=== PATIENT | female | born 1965 | race Caucasian/White ===

== ENCOUNTER 2019-05-15 19:24 | Outpatient (REF) | payer BC, SELFPAY ==
[2019-05-15 19:38] LABS: HCT 39.4 % (36.0-46.0); Mean Corpuscular Hemoglobin 28.9 pg (27.0-33.0); Mean Corpuscular Volume 87.6 fL (80-95); Mean Platelet Volume 11.6 fL (8.0-11.0); Platelet Count 182 x1000/uL (130-400); White Blood Cell Count 5.41 k/cumm (4.4-10.8)
[2019-05-15 19:42] LABS: Anion Gap 7.6 mmol/L (3-11); BUN 7 mg/dL (7-18); CO2 30.4 mmol/L (21.0-32.0); CREATININE 0.72 mg/dL (0.55-1.02); Calcium 8.5 mg/dL (8.5-10.1); Chloride 106 mmol/L (98-107); Glucose 89 mg/dL (74-106); Potassium 3.3 mmol/L (3.5-5.1); Sodium 144 mmol/L (136-145)
== END 2019-05-15 19:44 ==
LOC: NCHCO 19:24
PROVIDERS: PCP Nurse Practitioner Family; Visit Provider Nurse Practitioner Family
DX: Z00.00 Encounter for general adult medical examination without abnormal findings (principal); Z13.0 Encounter for screening for diseases of the blood and blood-forming organs and certain disorders involving the immune mechanism; Z13.228 Encounter for screening for other metabolic disorders
CPT/HCPCS: 80048; 85027

== ENCOUNTER 2019-08-13 00:54 | Outpatient (CLI) | payer BC, OTHER, SELFPAY ==
--- NOTE | 2019-08-13 | DI.MAMMO_ITS ---
EXAM: MAMMO SCREENING CLINICAL HISTORY: SCREENING Z12.39 TECHNIQUE: Mammograms were interpreted according to the usual protocol including computer analysis w IM-Sense CAD system, tomosynthesis and C-view imaging. COMPARISON: 2012 examination from [place]. FINDINGS: The breasts are composed of scattered fibroglandular densities, Breast Density category B. No suspicious masses or suspicious microcalcifications are seen. No skin thickening or abnormal axillary lymph nodes are seen. There has been no significant change from prior exams. IMPRESSION: BIRADS Category 1, negative mammogram. Yearly screening mammography is recommended.
== END 2019-08-13 01:14 ==
PROVIDERS: PCP Nurse Practitioner Family; Visit Provider Nurse Practitioner Family
DX: Z12.31 Encounter for screening mammogram for malignant neoplasm of breast (principal)
CPT/HCPCS: 77063; 77067

== ENCOUNTER 2020-07-29 10:39 | Emergency (ER) | payer BC, OTHER, SELFPAY ==
[2020-07-29] VITALS (14 sets, daily range): BP systolic 108–157; BP diastolic 64–94; PULSE 68–102; RESP 13–24; TEMP 36.6; O2SAT 93–100
--- NOTE | 2020-07-29 10:30 | RT.EKG_ITS ---
APPROVED REPORT Exam: Resting ECG Patient Location: E HR:95 bpm ECG Measurements Heart Rate 95 AXIS WA 125 P 24 QRSd 82 QRS 20 QT 372 T -8 QTc 468 Conclusion Sinus rhythm...normal P axis, V-rate 60- 99 I have reviewed and interpreted ECG and agree with software generated interpretation.
[2020-07-29 11:15] LABS: Abs Immature Grans 0.03 10^3/uL (0.0-0.06); Absolute Basophil Count 0.01 10^3/uL (0.0-0.2); Absolute Eosinophil Count 0.15 10^3/uL (0.0-0.7); Absolute Lymphocyte Count 1.42 10^3/uL (1.2-3.4); Absolute Monocyte Count 0.18 10^3/uL (0.1-0.8); Absolute Neutrophil Count 2.91 10^3/uL (1.2-6.7); Basophils % 0.2; Eosinophils % 3.2; HCT 42.3 % (36.0-46.0); HGB 14.1 g/dL (11.2-15.7); Immature Grans % 0.6; Lymphocytes % 30.2; MCHC 33.3 % (32.0-36.0); MCV 86.9 fL (80-95); MPV 11.2 fL (8.0-11.0); Monocytes % 3.8; Nucleated RBC 0 %; Platelet Count 167 10^3/uL (130-400); RBC 4.87 10^6/uL (3.93-5.22); RDW 13.4 % (11.7-14.6); RDW-SD 42.8 fL
--- NOTE | 2020-07-29 11:25 | ED.GENADUL_ITS ---
Discharge Plan Disposition Patient Disposition: HOME Condition: Stable Discharge Details Clinical Impression: Palpitations with regular cardiac rhythm, Anxiety, Hypokalemia Primary Care Provider: Jesse Waterman ED Provider: Elina Meraz Home Meds and New Rx's Prescriptions: New hydroxyzine HCl 25 mg tablet 25 mg PO BID PRN (Reason: anxiety) Qty: 10 RF: 0 Continued aspirin [Adult Low Dose Aspirin] 81 mg tablet,delayed release (DR/EC) 81 mg PO DAILY RF: 0 flecainide 150 mg tablet 150 mg PO BID RF: 0 metoprolol tartrate 25 mg tablet 25 mg PO DAILY RF: 0 Discharge Instructions Instructions: Heart Palpitations (ED), Hypokalemia (ED), Anxiety (ED) Additional Instructions: Follow up with primary care provider in 3-5 days. Return to ED sooner if any worsening or concerns. Increase oral fluids. Please take Tylenol or Ibuprofen with food every 4-6 hours as needed for pain and swelling. Your potassium was slightly low today at 3.1, you were given a potassium supplement here in the department. Increase intake of bananas if possible and discuss this with your primary care provider at your next visit. Try hydroxyzine 1 tablet at bedtime each night as needed for anxiety. Please return for any worsening symptoms, fever, chills or any concerns. Referrals: Jesse Waterman, [employer] [Primary Care Provider] - Discharge Data Discharge Date/Time-TO BE ENTERED AT DEPARTURE: 07/29/20 13:08 Medical Decision Making 55-year-old female presents to the ER with chief complaint of palpitation which began last night woke her up out of sleep. At that time she was complaining of sweatiness which has now resolved. Palpitations have resolved at this time. She denies any chest pain. She does have a history of asthma and a seasonal cough which she states is at her baseline at this time. She denies any fever, no nausea vomiting diarrhea no abdominal pain. She does appear very anxious, pressured speech, flight of ideas, she does use albuterol inhalers did not need to use any this morning. EKG was reviewed by Dr. Tonya Delatorre MD ER attending, please see her official read and interpretation EKG was also read by the housekeeping lead Dr. Vazquez Myles who agrees with interpretation. No ST elevation no ectopy. CBC is largely within normal limits, CMP is largely within normal limits mild hypokalemia at 3.1, alk phos is 120, troponin is less than 0.05, EXAM: XR CHEST 2V PA LATERAL CLINICAL HISTORY: Palpitations, hx of asthma TECHNIQUE: 2D digital imaging was performed. COMPARISON: No exams were available for comparison FINDINGS: MEDIASTINUM: Normal. HEART: Normal. PULMONARY VASCULATURE: Normal. LUNGS: Clear. PLEURAL SPACE: No pleural effusion or pneumothorax. BONE:Within normal limits for the patient's age. OTHER FINDINGS:Normal. IMPRESSION: No acute pulmonary findings. Patient was given 20 mEq potassium p.o. here in department discussed home care and having PCP follow-up with potassium level. Discuss strict return instructions patient verbalized understanding. Patient remained hemodynamically stable with normal sinus rhythm throughout stay. This text was generated using [employer] system, please disregard any oddities of phrase or misspellings. HPI General Mode of arrival: ambulatory . Date/Time Provider Initiated Documentation: 07/29/20 10:44 . Limitations to Documentation: no limitations . Information obtained by: patient . HPI Narrative: 55-year-old female presents to the ER with chief complaint of palpitation which began last night woke her up out of sleep. At that time she was complaining of sweatiness which has now resolved. Palpitations have resolved at this time. She denies any chest pain. She does have a history of asthma and a seasonal cough which she states is at her baseline at this time. She denies any fever, no nausea vomiting diarrhea no abdominal pain. She does appear very anxious, pressured speech, flight of ideas, she does use albuterol inhalers did not need to use any this morning. Related Data Home Medications Medication Instructions Recorded Confirmed aspirin 81 mg tablet,delayed 81 mg PO DAILY 07/23/19 release flecainide 150 mg tablet 150 mg PO BID tab 07/23/19 metoprolol tartrate 25 mg tablet 25 mg PO DAILY 07/23/19 hydroxyzine HCl 25 mg PO BID PRN #10 tab 07/29/20 Previous Rx's Medication Instructions Recorded hydroxyzine HCl 25 mg PO BID PRN #10 tab 07/29/20 Allergies Allergy/AdvReac Type Severity Reaction Status Date / Time epinephrine Allergy Unverified 07/29/20 10:57 procaine [From Novocain] Allergy Unverified 07/29/20 10:57 Sulfa (Sulfonamide Allergy Hives Unverified 07/29/20 10:57 Antibiotics) General Stated Complaint: Anxiety FRANKO: 3 Review of Systems Narrative: Constitutional: Negative for weight loss, alert and oriented, well groomed, obese body habitus, appears comfortable. Does endorse intermittent anxiety. HEENT: Denies trauma, headaches, blurry vision, nasal discharge, sore throat, trouble swallowing. Chest: Denies chest pain, irregular rhythm, positive palpitations, history of hypertension, palpitations and symptoms resolved. Respiratory: Denies Shortness of breath, hemoptysis. Positive nonproductive cough, history of asthma. GI: Denies abdominal pain, nausea, vomiting, diarrhea, constipation. : Denies dysuria, hematuria, flank pain, rectal bleeding. Neuro: Denies dizziness, blurry vision, weakness, syncope, headache or facial numbness. Hematologic: Denies easy bruising, intolerance to heat or cold, hair loss. 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 Appears stated age. Obese body habitus. Head: Normocephalic, no trauma. Eyes: Pupils PERRLA, Red reflex noted, EOM's intact. Eyelids symmetrical without lesions, discharge, or swelling. ENT: Bilateral TM's WNL, External ear normal to inspection, no mastoid TTP, swelling, or erythema, Nasal turbinates WNL, no nasal discharge. Normal dentition, Posterior pharynx WNL, no exudate. Chest: RRR, Normal S1, S2, distal pulses intact. Resp: Lungs clear to auscultation bilaterally, no wheezes, rales, or rhonchi. Abdomen: Soft nontender nondistended, tender left lower quadrant. Musculoskeletal: Normal gait, 5/5 strength to all four extremities. Skin: No suspicious rashes or lesions. Capillary refill less than 2 sec. Neurologic: Cranial nerves II-XII intact. Alert and oriented x 3. DTR's intact. Hematologic/Lymphatic: No ecchymosis, no lymphadenopathy. Course Vital Signs Vital signs: Vital Signs Temperature 36.6 C 07/29/20 10:46 Pulse 92 H 07/29/20 10:46 Respiratory Rate 24 07/29/20 10:46 Blood Pressure 157/94 H 07/29/20 10:46 Pulse Oximetry 100 07/29/20 10:46 Temperature 36.6 C 07/29/20 10:46 Pulse 89 07/29/20 10:53 Pulse 92 H 07/29/20 10:53 Respiratory Rate 19 07/29/20 10:53 Respiratory Effort Non-Labored 07/29/20 10:57 Blood Pressure 157/94 H 07/29/20 10:53 Blood Pressure Mean 106 07/29/20 10:53 Blood Pressure Position Sitting 07/29/20 10:46 Pulse Oximetry 99 07/29/20 10:53 Oxygen Delivery Method Room Air 07/29/20 10:46 Oxygen Flow Rate 0 07/29/20 10:46 Pain Level 0 07/29/20 10:46 Lab/Test Results Lab/Test Results: Laboratory Tests Range/Units 07/29/20 11:05 WBC (4.4-10.8) 10^3/uL 4.70 RBC (3.93-5.22) 10^6/uL 4.87 Hgb (11.2-15.7) g/dL 14.1 Hct (36.0-46.0) % 42.3 MCV (80-95) fL 86.9 MCH (27.0-33.0) pg 29.0 MCHC (32.0-36.0) % 33.3 RDW (11.7-14.6) % 13.4 Plt Count (130-400) 10^3/uL 167 MPV (8.0-11.0) fL 11.2 H Immature Gran % 0.6 Neutrophils % 62.0 Lymphocytes % 30.2 Monocytes % 3.8 Eosinophils % 3.2 Basophils % 0.2 Nucleated RBC % % 0 Absolute Neutrophils (1.2-6.7) 10^3/uL 2.91 Absolute Lymphocytes (1.2-3.4) 10^3/uL 1.42 Absolute Monocytes (0.1-0.8) 10^3/uL 0.18 Absolute Eosinophils (0.0-0.7) 10^3/uL 0.15 Absolute Basophils (0.0-0.2) 10^3/uL 0.01
[2020-07-29 11:34] LABS: ALT 31 U/L (14-59); AST 32 U/L (15-37); Albumin 4.1 g/dL (3.4-5.0); Alkaline Phosphatase 120 U/L (46-116); Anion Gap 10.7 mmol/L (3-11); BUN 9 mg/dL (7-18); Bilirubin, Total 0.9 mg/dL (0.2-1.0); CO2 28.3 mmol/L (21.0-32.0); CREATININE 0.9 mg/dL (0.55-1.02); Calcium 9.2 mg/dL (8.5-10.1); Chloride 106 mmol/L (98-107); Glucose 93 mg/dL (74-106); Potassium 3.1 mmol/L (3.5-5.1); Sodium 145 mmol/L (136-145); Total Protein 8.5 g/dL (6.4-8.2)
[2020-07-29] MEDS: LORazepam 0.5 MG TAB PO (11:35)
[2020-07-29 11:40] LABS: Troponin I < 0.05 ng/mL (<0.06)
--- NOTE | 2020-07-29 11:55 | DI.RAD_ITS ---
EXAM: XR CHEST 2V PA LATERAL CLINICAL HISTORY: Palpitations, hx of asthma TECHNIQUE: 2D digital imaging was performed. COMPARISON: No exams were available for comparison FINDINGS: MEDIASTINUM: Normal. HEART: Normal. PULMONARY VASCULATURE: Normal. LUNGS: Clear. PLEURAL SPACE: No pleural effusion or pneumothorax. BONE:Within normal limits for the patient's age. OTHER FINDINGS:Normal. IMPRESSION: No acute pulmonary findings. DATA REPOSITORY: RADIATION DOSE DELIVERED:
[2020-07-29] MEDS: Potassium Chloride 20 MEQ TABCR 40 MEQ PO (12:54)
== END 2020-07-29 13:08 | disposition home or self-care (01) ==
PROVIDERS: Emergency Provider Registered Nurse Emergency; PCP Nurse Practitioner Family
DX: R00.2 Palpitations (principal); E87.6 Hypokalemia; F41.9 Anxiety disorder, unspecified
CPT/HCPCS: 36415; 80053; 93005; 99285; 71046; 83735; 84484; 85025; 93010; 99284

== ENCOUNTER 2021-12-28 15:04 | Outpatient (REF) | payer BC, OTHER, SELFPAY ==
[2021-12-28 20:26] LABS: Abs Immature Grans 0.02 10^3/uL (0.0-0.06); Absolute Basophil Count 0.01 10^3/uL (0.0-0.2); Absolute Eosinophil Count 0.15 10^3/uL (0.0-0.7); Absolute Monocyte Count 0.28 10^3/uL (0.1-0.8); Absolute Neutrophil Count 3.17 10^3/uL (1.2-6.7); Basophils % 0.2; Eosinophils % 2.9; HCT 40.9 % (36.0-46.0); HGB 13.4 g/dL (11.2-15.7); Immature Grans % 0.4; Lymphocytes % 30.6; MCH 28.3 pg (27.0-33.0); MCHC 32.8 % (32.0-36.0); MCV 87 fL (80-95); MPV 12.7 fL (8.0-11.0); Monocytes % 5.4; Neutrophils % 60.5; Platelet Count 131 10^3/uL (130-400); RBC 4.73 10^6/uL (3.93-5.22); RDW 13.8 % (11.7-14.6); RDW-SD 43.4 fL; WBC 5.23 10^3/uL (4.4-10.8)
[2021-12-28 20:54] LABS: ALT 35 U/L (14-59); AST 49 U/L (15-37); Alkaline Phosphatase 117 U/L (46-116); Anion Gap 13.5 mmol/L (3-11); BUN 8 mg/dL (7-18); Bilirubin, Total 0.6 mg/dL (0.2-1.0); CO2 27.5 mmol/L (21.0-32.0); CREATININE 0.7 mg/dL (0.55-1.02); Calcium 8.9 mg/dL (8.5-10.1); Chloride 105 mmol/L (98-107); Glucose 86 mg/dL (74-106); Magnesium 1.9 mg/dL (1.8-2.4); Potassium 3.3 mmol/L (3.5-5.1); Sodium 146 mmol/L (136-145); Total Protein 7.8 g/dL (6.4-8.2)
== END 2021-12-28 15:05 | disposition home or self-care (01) ==
LOC: LBN 15:04
PROVIDERS: PCP Nurse Practitioner Family; Visit Provider Nurse Practitioner Family
DX: R25.2 Cramp and spasm (principal)
CPT/HCPCS: 80053; 83735; 85025

== ENCOUNTER 2022-01-23 18:26 | Emergency (ER) | payer BC, OTHER, SELFPAY ==
[2022-01-23 18:31] VITALS: BP 130/81; PULSE 102; RESP 16; TEMP 36.3; O2SAT 99
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
== END 2022-01-23 18:55 | disposition home or self-care (01) ==
PROVIDERS: Emergency Provider Emergency Medicine; PCP Nurse Practitioner Family
DX: S00.83XA Contusion of other part of head, initial encounter (principal); W22.8XXA Striking against or struck by other objects, initial encounter; Y93.89 Activity, other specified
CPT/HCPCS: 99281; 99282

== ENCOUNTER 2022-05-01 16:32 | Outpatient (REF) | payer BC, OTHER, SELFPAY ==
[2022-05-01 16:54] LABS: ALT 33 U/L (14-59); AST 58 U/L (15-37); Albumin 3.8 g/dL (3.4-5.0); Alkaline Phosphatase 118 U/L (46-116); Anion Gap 10.8 mmol/L (3-11); BUN 8 mg/dL (7-18); Bilirubin, Total 0.8 mg/dL (0.2-1.0); CO2 28.2 mmol/L (21.0-32.0); CREATININE 0.8 mg/dL (0.55-1.02); Calcium 8.9 mg/dL (8.5-10.1); Chloride 104 mmol/L (98-107); Glucose 96 mg/dL (74-106); Potassium 3.1 mmol/L (3.5-5.1); Sodium 143 mmol/L (136-145); Total Protein 7.9 g/dL (6.4-8.2)
== END 2022-05-01 16:33 | disposition home or self-care (01) ==
LOC: LBN 16:32
PROVIDERS: Visit Provider Physician Assistant Medical
DX: U07.1 COVID-19 (principal)
CPT/HCPCS: 80053

== ENCOUNTER 2023-01-09 15:16 | Emergency (ER) | payer BC, OTHER, SELFPAY ==
[2023-01-09 15:23] VITALS: BP 164/57; PULSE 87; RESP 18; TEMP 37.3; O2SAT 97
[2023-01-09 17:17] LABS: Bilirubin Negative (Negative); Blood Negative (Negative); Clarity Clear (Clear); Glucose Negative (Negative); Ketones Negative (Negative); Leukocyte Esterase Negative (Negative); Nitrite Negative (Negative); Specific Gravity 1.015 (1.005-1.025); Urobilinogen 0.2 mg/dL (Up to 0.2); pH 6.5 (5-8)
--- NOTE | 2023-01-09 17:32 | ED.GENADUL_ITS ---
Discharge Plan Disposition Patient Disposition: Home Condition: Stable Discharge Details Clinical Impression: Left acute otitis media Primary Care Provider: Unknown,Unknown ED Provider: Franc Dorsey Home Meds and New Rx's Prescriptions: New amoxicillin 500 mg tablet 500 mg PO BID Qty: 20 0RF Continued loratadine [Claritin] 10 mg Tablet 10 mg PO DAILY Discharge Instructions Instructions: Ear Infection (ED) Additional Instructions: follow up with your primary care provider in 1-2 weeks especially if symptoms continue if you feel more ill, have severe worsening pain or fevers return to the emergency department Medical Decision Making 57 yo female comes in with 1-2 weeks of left ear pain. States she had it irrigated at urgent care last week. Denies fevers, chills, chest pain, dyspnea, abdominal pain, no trauma and no severe pain. Her right TM is normal, left TM red and bulging, normal ext aud canals bilaterally. CAox4, no facial swelling, eomi, perrl. Findings consistent with otitis media, will start her on amoxicillin. She also noted blood in her urine earlier denies any frequency or dysuria. UA today normal. She is not sure if it was from her urine or vagina. No bleeding currently and declined pelvic which I feel is reasonable. Advised she should f/u with her pcp if it continues for outpatient u/s of her uterus. She is stable for d/c, return precautions given Differential Diagnosis Differential Diagnosis: otitis media, otitis externa, uti, vaginal bleeding HPI General Mode of arrival: ambulatory . Date/Time Provider Initiated Documentation: 01/09/23 16:14 . Limitations to Documentation: no limitations . Information obtained by: patient . History of Present Illness 57 year old F presents to the emergency department with the chief complaint of left ear pain, described as moderate, Patient started experiencing this week(s) (1) and it has been constant. No relieving factors improve symptom(s), No exacerbating factors reported . Patient notes other (blood in urine). Patient did receive the following treatments prior to arrival, none Related Data Home Medications Medication Instructions Recorded Confirmed loratadine 10 mg tablet (Claritin) 10 mg PO DAILY 01/23/22 01/09/23 amoxicillin 500 mg tablet 500 mg PO BID #20 tabs 01/09/23 Previous Rx's Medication Instructions Recorded amoxicillin 500 mg tablet 500 mg PO BID #20 tabs 07/23/23 Allergies Allergy/AdvReac Type Severity Reaction Status Date / Time epinephrine Allergy Unverified 01/23/22 18:37 procaine [From Novocain] Allergy Unverified 01/23/22 18:37 Sulfa (Sulfonamide Allergy Hives Unverified 01/23/22 18:37 Antibiotics) General Stated Complaint: EarProblem FRANKO: 4 Review of Systems All systems reviewed & are unremarkable except as noted in HPI and below Constitutional Constitutional: Denies chills, Denies fever(s) and Denies weakness Cardiovascular Cardiovascular: Denies chest pain and Denies dyspnea Respiratory Respiratory: Denies cough and Denies dyspnea Gastrointestinal Gastrointestinal: Denies abdominal pain, Denies nausea and Denies vomiting Genitourinary Genitourinary: Denies dysuria Integumentary/Breasts Skin/Breast: Denies rash Neurologic Neurologic: Denies weakness PFSH All Active Problems (Updated 01/09/23 @ 17:35 by Franc Dorsey MD) Left acute otitis media (Acute) Medical History (Updated 01/09/23 @ 17:35 by Franc Dorsey MD) Degenerative arthritis of spine Hemorrhoids 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 Supraventricular arrhythmia Social History Smoking/Tobacco Use Status: Never Smoking risk assessment performed?: Yes Alcohol Intake: never Drug use: Never Substance use type: does not use Do you feel safe at home: Yes Do you feel safe in your relationship?: Yes Exam Const General: no acute distress Orientation: alert HENMT Head: normal to inspection Ears: external ears normal, TM normal on the right and left TM abnormal General nose exam: external nose normal Mouth: moist mucous membranes Eyes General: appearance normal, both eyes and all related structures Neck Neck: normal visual inspection Resp Effort & Inspection: normal respiratory effort and able to speak in complete sentences Cardio Rate: regular rate Skin General skin exam: no rashes or lesions noted Neuro General: patient alert and patient oriented x3 Extrem General: normal to inspection Psych Mental Status: mental status grossly normal Course Vital Signs Vital signs: Vital Signs Temperature 37.3 C 01/09/23 15:23 Pulse 87 01/09/23 15:23 Respiratory Rate 18 01/09/23 15:23 Blood Pressure 164/57 H 01/09/23 15:23 Pulse Oximetry 97 01/09/23 15:23 Temperature 37.3 C 01/09/23 15:23 Pulse 87 01/09/23 15:23 Respiratory Rate 18 01/09/23 15:23 Respiratory Effort Normal, Non-Labored 01/09/23 15:30 Blood Pressure 164/57 H 01/09/23 15:23 Blood Pressure Position Sitting 01/09/23 15:23 Pulse Oximetry 97 01/09/23 15:23 Oxygen Delivery Method Room Air 01/09/23 15:23 Oxygen Flow Rate 0 01/09/23 15:23 Lab/Test Results Lab/Test Results: Laboratory Tests Range/Units 01/09/23 16:34 Urine Color (Yellow) Yellow Urine Clarity (Clear) Clear Urine pH (5-8) 6.5 Ur Specific [place] (1.005-1.025) 1.015 Urine Protein (Negative) mg/dL Negative Urine Ketones (Negative) mg/dL Negative Urine Blood (Negative) Negative Urine Nitrite (Negative) Negative Urine Bilirubin (Negative) Negative Urine Urobilinogen (Up to 0.2) mg/dL 0.2 Ur Leukocyte Esterase (Negative) Negative Urine Glucose (Negative) mg/dL Negative
[2023-01-09] MEDS: Amoxicillin 500 MG CAP PO (17:47)
[2023-01-09 18:48] VITALS: BP 124/73; PULSE 76; RESP 16; O2SAT 93
== END 2023-01-09 18:59 | disposition home or self-care (01) ==
PROVIDERS: Emergency Provider Emergency Medicine
DX: H66.92 Otitis media, unspecified, left ear (principal)
CPT/HCPCS: 99283; 81003

== ENCOUNTER 2023-09-09 21:18 | Outpatient (REF) | payer BC, OTHER, SELFPAY ==
[2023-09-09 21:25] LABS: Abs Immature Grans 0.01 10^3/uL (0.0-0.06); Absolute Basophil Count 0.01 10^3/uL (0.0-0.2); Absolute Lymphocyte Count 1.48 10^3/uL (1.2-3.4); Absolute Monocyte Count 0.21 10^3/uL (0.1-0.8); Basophils % 0.2; Eosinophils % 2.1; HCT 41.1 % (36.0-46.0); HGB 13.1 g/dL (11.2-15.7); Immature Grans % 0.2; Lymphocytes % 30.8; MCH 28.1 pg (27.0-33.0); MCHC 31.9 % (32.0-36.0); MCV 88 fL (80-95); Monocytes % 4.4; Neutrophils % 62.3; RBC 4.66 10^6/uL (3.93-5.22); RDW 13.9 % (11.7-14.6); RDW-SD 44.8 fL; WBC 4.81 10^3/uL (4.4-10.8)
[2023-09-09 21:34] LABS: Bacteria Few HPF (Negative); C & S Indicated? C&S Done As Ordered; Casts Negative LPF (Negative); Crystals Negative HPF (Negative); Epithelial Cells Few HPF (Negative); Mucus Negative (Negative)
[2023-09-09 21:44] LABS: ALT 44 U/L (14-59); AST 56 U/L (15-37); Albumin 4.2 g/dL (3.4-5.0); Alkaline Phosphatase 125 U/L (46-116); Anion Gap 11.5 mmol/L (3-11); BUN 14 mg/dL (7-18); Bilirubin, Total 1.1 mg/dL (0.2-1.0); CO2 26.5 mmol/L (21.0-32.0); CREATININE 0.7 mg/dL (0.55-1.02); Calcium 9.5 mg/dL (8.5-10.1); Chloride 108 mmol/L (98-107); Estimated GFR 101.44 (mL/min/1.73m2); Glucose 90 mg/dL (74-106); Potassium 4.6 mmol/L (3.5-5.1); Sodium 146 mmol/L (136-145); Total Protein 8.3 g/dL (6.4-8.2)
== END 2023-09-09 21:19 | disposition home or self-care (01) ==
LOC: LBN 21:18
PROVIDERS: Visit Provider Physician Assistant Medical
DX: R10.31 Right lower quadrant pain (principal); R10.2 Pelvic and perineal pain; M54.89 Other dorsalgia; R82.998 Other abnormal findings in urine
CPT/HCPCS: 80053; 81015; 85025; 87086; 87480; 87510; 87660

== ENCOUNTER 2024-01-25 18:35 | Outpatient (REF) | payer BC, OTHER, SELFPAY ==
[2024-01-25 21:26] LABS: ALT 26 U/L (14-59); AST 32 U/L (15-37); Albumin 3.8 g/dL (3.4-5.0); Alkaline Phosphatase 101 U/L (46-116); Anion Gap 8.6 mmol/L (3-11); BUN 8 mg/dL (7-18); Bilirubin, Total 0.61 mg/dL (0.2-1.0); CO2 28.4 mmol/L (21.0-32.0); CREATININE 0.8 mg/dL (0.55-1.02); Calcium 8.9 mg/dL (8.5-10.1); Calculated LDL 86 mg/dL (<100); Chloride 107 mmol/L (98-107); Cholesterol 143 mg/dL (<200); Estimated GFR 86.42 (mL/min/1.73m2); Glucose 89 mg/dL (74-106); HDL Cholesterol 41 mg/dL (40-60); Potassium 3.8 mmol/L (3.5-5.1); Sodium 144 mmol/L (136-145); Total Protein 7.9 g/dL (6.4-8.2); Triglyceride 82 mg/dL (<150)
== END 2024-01-25 18:36 | disposition home or self-care (01) ==
LOC: NCHCN 18:35
PROVIDERS: PCP Nurse Practitioner Family; Visit Provider Nurse Practitioner Family
DX: Z00.00 Encounter for general adult medical examination without abnormal findings (principal); Z13.220 Encounter for screening for lipoid disorders; Z13.228 Encounter for screening for other metabolic disorders
CPT/HCPCS: 80053; 80061

== ENCOUNTER 2024-06-18 01:36 | Outpatient (CLI) | payer BC, OTHER, SELFPAY ==
--- NOTE | 2024-06-18 | DI.MAMMO_ITS ---
Exam(s) MAMMO SCREENING EXAM: MAMMO SCREENING CLINICAL HISTORY: Screening, Z12.31. TECHNIQUE: Bilateral full field digital CC and MLO mammographic images were obtained with 3D tomosyn thesis and utilizing computer aided detection (CAD). COMPARISON: Prior mammograms were reviewed. FINDINGS: There has been no significant change in the appearance and distribution of the fibroglandular tissue. Small benign oil cyst is noted anteriorly in the left breast. There are no new spiculated masses nor new malignant appearing microcalcification groups. There is no significant architectural distortion nor skin thickening-retraction. IMPRESSION: No radiographic evidence of malignancy. BI-RADS Category 1 - Negative Breast Density - Category B - Scattered areas of fibroglandular density Breast density Category C or D implies that the patient has dense breast tissue. Dense breast tissue can make it harder to find cancer on a mammogram. Dense breast tissue is also associated with an incr eased risk of breast cancer. This information about the result of the mammogram report was provided to the patient to raise their awareness. Use this report when you speak with the patient about their risks for breast cancer, which includes their family history. At that time, you may recommend additional screening tests (Ultrasoun d or MRI) as these tests may add significant information. A negative radiographic report should not delay biopsy if a dominant or clinically suspicious mass is present. Up to ten percent of cancers are not identified on mammography. A negative report may reinforce clinical impression. Adenosis and dense breasts may obscure an underlying neoplasm. False positive reports average 6 to 10%. Patient will receive a letter notifying them of these results.
== END 2024-06-18 01:56 ==
LOC: DI 01:37
PROVIDERS: PCP Nurse Practitioner Family; Visit Provider Nurse Practitioner Family
DX: Z12.31 Encounter for screening mammogram for malignant neoplasm of breast (principal); D24.2 Benign neoplasm of left breast; R92.323 Mammographic fibroglandular density, bilateral breasts
CPT/HCPCS: 77063; 77067

== ENCOUNTER 2024-06-18 11:42 | Outpatient (REF) | payer BC, OTHER, SELFPAY ==
--- NOTE | 2024-06-18 11:15 | PAPFT_PTH ---
PATIENT: Juani Kearney LOC: [facility] U#:[id number] AGE/SX: 58/F ROOM: RE06/18/[address]: Becca Dorsey NP : 1965 BED: DIS: 06/18/2024 SPEC #: [id number] RECD: 06/18/24 13:13 STATUS: NYDIA REQ #: [id number] CAITLYN: 06/18/24 11:[address]: Becca Dorsey NP DEPT: [facility] Cytology RECD BY: Cici Dickinson ENTERED: 06/18/24 13:13 SP TYPE: PAPFT OTHR DR: KSENIA ENCINAS NP Tissues: 1 - CX/ENDOCX FOR PAP SMEARS Procedures: PAP THIN PREP/UVM Screening HPV DNA PROBE Comments: [id number] (HPV 16 & 18/45)
== END 2024-06-18 11:43 | disposition home or self-care (01) ==
LOC: LBN 11:42
PROVIDERS: PCP Nurse Practitioner Family; Visit Provider Nurse Practitioner Women's Health
DX: Z01.419 Encounter for gynecological examination (general) (routine) without abnormal findings (principal); Z12.4 Encounter for screening for malignant neoplasm of cervix
CPT/HCPCS: 88142; 87624

== ENCOUNTER 2024-08-25 19:19 | Emergency (ER) | payer BC, OTHER, SELFPAY ==
[2024-08-25 19:37] VITALS: BP 167/65; PULSE 89; RESP 18; TEMP 37; O2SAT 97
[2024-08-25 19:50] LABS: Bilirubin Negative (Negative); Blood Negative (Negative); Clarity Clear (Clear); Glucose Negative (Negative); Ketones Negative (Negative); Leukocyte Esterase Small (Negative); Nitrite Negative (Negative); Specific Gravity <= 1.005 (1.005-1.025); Urobilinogen 0.2 mg/dL (Up to 0.2); pH 5.5 (5-8)
--- NOTE | 2024-08-25 19:50 | W.ED.GENAD ---
Discharge Plan Disposition Patient Disposition: Home Condition: Stable Discharge Details Clinical Impression: Dysuria Primary Care Provider: KSENIA ENCINAS ED Provider: Donal Wilson Home Meds and New Rx's Prescriptions: Continued acetaminophen 325 mg capsule 325 mg PO ONCE PRN All Day Allergy (cetirizine) 10 mg capsule 10 mg PO DAILY PRN Probiotic Acidophilus 250 million cell capsule 500 mmu cells PO DAILY multivitamin [Daily Multi-Vitamin] Tablet 1 tab PO DAILY loratadine [Claritin] 10 mg Tablet 10 mg PO DAILY Discharge Instructions Instructions: Dysuria (ED) Additional Instructions: You were seen in the emergency department for your abdominal discomfort with flank pain, there are some white blood cells in your urine indicating a possible infection versus contamination during collection of sample, I did have them send a culture to grow to make sure this is not a UTI. This culture should result in the next 36 to 48 hours. Someone will send you antibiotic should it be positive for urinary tract infection, there is no evidence of kidney infection or buildup of fluid around the kidneys or renal stone. You have a small umbilical hernia but no evidence of other acute abdominal pathology, please take [id number] AZO to help with symptomatic pain in the urethra, stay well-hydrated, follow-up with your PCP, please return to the emergency department for any severe increase in pain especially with fever. Referrals: KSENIA ENCINAS, [employer] [Primary Care Provider] - HPI General Date/Time Provider Initiated Documentation: 08/25/24 19:50. HPI Narrative: 59 year-old female presents to ED today by POV/ambulating with a chief complaint of dysuria, bilateral flank pain with onset for the past two days. Quality described as irritation with urinating, some nausea, no radiation to fever, vomiting, dark urine, inability to void, severe abdominal pain, cough. Severity is described as moderate. Palliating factors include nothing specific. Provoking factors include nothing specific. Events leading up to the incident/Associated Symptoms: Patient questions if she had history of a very small renal stone. Patient not anticoagulated. Related Data Home Medications ?Medication ?Instructions ?Recorded ?Confirmed loratadine 10 mg tablet (Claritin) 10 mg PO DAILY 01/23/22 08/25/24 acetaminophen 325 mg capsule 325 mg PO ONCE PRN 06/18/24 08/25/24 cetirizine 10 mg capsule (All Day 10 mg PO DAILY PRN 06/18/24 08/25/24 Allergy (cetirizine)) Lactobacillus acidophilus 250 500 mmu cells PO DAILY 08/25/24 08/25/24 million cell capsule (Probiotic Acidophilus) multivitamin (Daily Multi-Vitamin 1 tab PO DAILY 08/25/24 08/25/24 tablet) Allergies Allergy/AdvReac Type Severity Reaction Status Date / Time epinephrine Allergy Wheezing Unverified 08/25/24 19:42 procaine (From Novocain) Allergy Wheezing Unverified 08/25/24 19:42 Sulfa (Sulfonamide Allergy Hives Unverified 08/25/24 19:42 Antibiotics) General Stated Complaint: Urinary FRANKO: 3 Review of Systems All systems reviewed & are unremarkable except as noted in HPI and below Exam Narrative Exam Narrative: GENERAL APPEARANCE: Well-nourished, non-toxic, awake and alert, atraumatic, no acute distress. SKIN: Warm, pink, dry, intact, without rashes/lesions/ulcerations. HEAD: Normocephalic, atraumatic, normal hair distribution for gender/age. EYES: Normal conjunctiva, no exudates on lids/lashes. ENT: Nares patent, no circumoral cyanosis, no facial swelling NECK: Supple, trachea midline, painless cervical ROM. LUNGS/CHEST: Lungs CTA bilaterally, non-labored respirations, normal A/P diameter, symmetrical expansion, no chest wall deformity HEART (CV/PV): Regular rate and rhythm without murmur, no peripheral edema, no JVD. ABDOMEN: Soft, non-distended, no guarding, suprapubic tenderness without rebound tenderness, R>L CVA tenderness to percussion. MSK: Normal ROM, no swelling/deformity to bilateral UEs or LEs, moving all extremities without weakness, no cyanosis, spine midline without tenderness, normal curvature. NEURO: Mental Status AAOx4 - alert to person, place, time, events No facial droop, no forehead involvement. Motor: No focal weakness - strength 5/5 in bilateral UEs and LEs, proximal and distal, symmetric. Sensory: sensation intact to light touch globally. Gait normal: patient ambulated without ataxia into ED room. PSYCH: euthymic, cooperative, pleasant, appropriate speech Course Vital Signs Vital signs: Vital Signs Temperature 37.0 C 08/25/24 19:37 Pulse 89 08/25/24 19:37 Respiratory Rate 18 08/25/24 19:37 Blood Pressure 167/65 H 08/25/24 19:37 Pulse Oximetry 97 08/25/24 19:37 Temperature 37.0 C 08/25/24 19:37 Temperature Source Temporal Artery Scan 08/25/24 19:37 Pulse 89 08/25/24 19:37 Respiratory Rate 18 08/25/24 19:37 Blood Pressure 167/65 H 08/25/24 19:37 Blood Pressure Position Sitting 08/25/24 19:37 Pulse Oximetry 97 08/25/24 19:37 Oxygen Delivery Method Room Air 08/25/24 19:37 Oxygen Flow Rate 0 08/25/24 19:37 Pain Level 6 08/25/24 19:40 Medical Decision Making This dictation utilizes [id number] dictation software and may contain unedited grammatical errors. 59 year-old female presents to ED today by POV/ambulating with a chief complaint of dysuria, bilateral flank pain with onset for the past two days. Quality described as irritation with urinating, some nausea, no radiation to fever, vomiting, dark urine, inability to void, severe abdominal pain, cough. Severity is described as moderate. Palliating factors include nothing specific. Provoking factors include nothing specific. Events leading up to the incident/Associated Symptoms: Patient questions if she had history of a very small renal stone. Patients' medical history: Noncontributory. Family and social history: Noncontributory. Pertinent exam findings / vital signs include suprapubic tenderness without rebound tenderness, R>L CVA tenderness to percussion, nontoxic and afebrile, benign cardiopulmonary status. Differential / pathologies of concern include pyelonephritis, UTI, renal colic. Diagnostic studies of: -CBC, CMP, CT Renal Colic wo, UA. -Laboratory workup benign -CT shows possible small umbilical hernia, no hydronephrosis or renal stone visualized -UA with 5-10 WBCs not definitive for UTI, culture sent Interventions of: -Recommend Voltaren gel, AZO until urine culture results. ED Course/Assessment/Plan: 59-year-old female presents with 2 days of dysuria, flank pain, unsure whether this is due to musculoskeletal or UTI type pathology, there is no evidence for definitive UTI on UA, CT renal colic study is negative for acute pathology, counseled patient on Azo use and trial of heat and Voltaren gel to back pain for trial of relief of musculoskeletal back pain, strict return criteria for increasing symptoms with fever, urinary retention, counseled patient that she could follow-up on her urine culture somebody will call her to send antibiotics about 36 to 48 hours if positive. Findings not consistent with obstructive uropathy, CINDY, definitive UTI, sepsis. Disposition of Dysuria. Patient verbalized understanding of the plan and return to ED criteria and engaged in shared decision making. Medical Records Medical records reviewed: Yes I reviewed the patient's medical records. Imaging Data Radiologic Study: Attestation: I personally reviewed and interpreted this imaging study as follows: Imaging: CT Scan Radiologist's impression: Exam: CT Abdomen And Pelvis Without Contrast Exam date and time: 08/25/2024 8:37 PM Age: 59 years old Clinical indication: Abdominal pain; R CVA tenderness TECHNIQUE: Imaging protocol: Computed tomography of the abdomen and pelvis without contrast. COMPARISON: CT RENAL COLIC WO 09/12/2023 1:31 PM FINDINGS: Liver: Normal. No mass. Gallbladder and biliary ducts: Status post cholecystectomy. Pancreas: Normal. No ductal dilation. Spleen: Mild splenomegaly. Adrenal glands: Normal. No mass. Kidneys and ureters: Normal. No hydronephrosis. Stomach and bowel: Scattered colonic diverticulosis. Appendix: No evidence of appendicitis. Intraperitoneal space: Unremarkable. No free air. No significant fluid collection. Vasculature: Unremarkable. No abdominal aortic aneurysm. Lymph nodes: Unremarkable. No enlarged lymph nodes. Urinary bladder: Unremarkable as visualized. Reproductive: Unremarkable as visualized. Bones/joints: Unremarkable. No acute fracture. Soft tissues: Small umbilical hernia. IMPRESSION: 1. Colonic diverticulosis. No CT evidence for diverticulitis. 2. Small umbilical hernia. 3. Splenomegaly. Dictated and Authenticated by: Emeka Franklin MD. Lab Data Lab results reviewed: Yes I reviewed the patient's lab results. Labs: 08/25/24 19:48 Urine - Clean Catch Urine Culture - Pending Laboratory Tests Range/Units 08/25/24 08/25/24 19:48 20:30 WBC (4.4-10.8) 10^3/uL 5.34 RBC (3.93-5.22) 10^6/uL 4.65 Hgb (11.2-15.7) g/dL 13.3 Hct (36.0-46.0) % 40.9 MCV (80-95) fL 88 MCH (27.0-33.0) pg 28.6 MCHC (32.0-36.0) % 32.5 RDW (11.7-14.6) % 14.2 Plt Count (130-400) 10^3/uL 107 L MPV (8.0-11.0) fL 11.8 H Immature Gran % % 0.4 Neutrophils % % 65.9 Lymphocytes % % 26.4 Monocytes % % 4.5 Eosinophils % % 2.4 Basophils % % 0.4 Nucleated RBC % (0.0-0.3) % 0.0 Absolute Neutrophils (1.2-6.7) 10^3/uL 3.52 Absolute Lymphocytes (1.2-3.4) 10^3/uL 1.41 Absolute Monocytes (0.1-0.8) 10^3/uL 0.24 Absolute Eosinophils (0.0-0.7) 10^3/uL 0.13 Absolute Basophils (0.0-0.2) 10^3/uL 0.02 Sodium (136-145) mmol/L 144 Potassium (3.5-5.1) mmol/L 4.1 Chloride (98-107) mmol/L 106 Carbon Dioxide (21.0-32.0) mmol/L 30.5 Anion Gap (3-11) mmol/L 7.5 BUN (7-18) mg/dL 14 Creatinine (0.55-1.02) mg/dL 0.8 Est GFR (CKD-EPI 2020) (mL/min/1.73m2) 85.89 Glucose (74-106) mg/dL 97 Calcium (8.5-10.1) mg/dL 9.5 Urine Color (Yellow) Yellow Urine Clarity (Clear) Clear Urine pH (5-8) 5.5 Ur Specific Red Level (1.005-1.025) <= 1.005 Urine Protein (Neg-Trace) mg/dL Negative Urine Ketones (Negative) mg/dL Negative Urine Blood (Negative) Negative Urine Nitrite (Negative) Negative Urine Bilirubin (Negative) Negative Urine Urobilinogen (Up to 0.2) mg/dL 0.2 Ur Leukocyte Esterase (Negative) Small H Urine RBC (0-2) HPF Negative Urine WBC (0-5) HPF 5-10 Ur Epithelial Cells (Negative) HPF Moderate Urine Crystals (Negative) HPF Negative Urine Bacteria (Negative) HPF Negative Urine Casts (Negative) LPF Negative Urine Mucus (Negative) Negative Ur Culture Indicated? No/Sq. Contamination Urine Glucose (Negative) mg/dL Negative Quality:SDOH Health Related Social Needs: No Data to Display PFSH All Active Problems (Updated 08/25/24 @ 22:18 by PRECIOUS Mendoza) Dysuria (Acute) Medical History (Updated 08/25/24 @ 22:18 by PRECIOUS Mendoza) Second degree poole Hemorrhoids Loss of eye Supraventricular arrhythmia Meningitis spinal Degenerative arthritis of spine Family History (Updated 06/18/24 @ 11:01 by Becca Dorsey NP) Mother Diabetes Stroke Social History (Updated 06/18/24 @ 11:02 by Ariana Juarez) Smoking/Tobacco Use Status: Never Second Hand Exposure: No Smoking risk assessment performed?: Yes Alcohol Intake: never Drug use: Never Substance use type: does not use Household members: spouse and children Housing: house 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 Date GA/Weeks # Preg Succ Route Wgt Sex Labor Lgth Anesthesia Location Prov Complic Unknown 40 No Yes vaginal Female Unknown 42 No Yes vaginal Male Unknown 40 No Yes vaginal Male Delivery Date: Last Updated by: Ariana Juarez 1995 Delivery Date: Last Updated by: Ariana Juarez 2000 Delivery Date: Last Updated by: Ariana Juarez 2010
[2024-08-25 19:56] LABS: Bacteria Negative HPF (Negative); C & S Indicated? No/Sq. Contamination; Casts Negative LPF (Negative); Crystals Negative HPF (Negative); Epithelial Cells Moderate HPF (Negative); Mucus Negative (Negative); RBC Negative HPF (0-2)
--- NOTE | 2024-08-25 20:00 | DI.CT_ITS ---
Exam(s) CT RENAL COLIC WO EXAM: CT RENAL COLIC WO CLINICAL HISTORY: R CVA tenderness. TECHNIQUE: Imaging Protocol: Axial computed tomography images with coronal and sagittal reformatted images were created and reviewed CONTRAST MATERIAL: Intravenous: none Oral: None COMPARISON: CT CT RENAL COLIC WO from 09/12/2023 FINDINGS: VISUALIZED LUNG BASES: No nodules nor pleural effusions evident. ABDOMEN: There is no ascites. LIVER: There are no obvious focal hepatic lesions evident of this noninfused study. GALLBLADDER/BILIARY: The gallbladder is again noted to be surgically absent. CBD is not dilated. PANCREAS: No evidence of pancreatic mass nor dilatation of the pancreatic duct. SPLEEN: Spleen is again noted be significantly enlarged, measuring 16.7 cm AP and exhibiting cranioca udal measurement of 14.4 cm ADRENALS: There are no significant adrenal masses. KIDNEYS:No cysts evident. No solid renal masses. No calculi nor hydronephrosis. . ABDOMINAL AORTA: Abdominal aorta is not enlarged. LYMPH NODES: There is no retroperitoneal nor paraaortic adenopathy. ABDOMINAL WALL: There is anterior abdominal wall midline umbilical fat only containing hernia again n oted. GI: There is no evidence of bowel obstruction, free air, nor abscess. PELVIS: LYMPH NODES: There is no intrapelvic nor inguinal adenopathy. GI: No evidence of appendicitis.Sigmoid diverticulosis. There is no evidence of acute diverticulitis . No colitis pattern. URINARY BLADDER: No calculi nor obvious masses evident REPRODUCTIVE: Uterus and adnexal regions unremarkable. No free fluid in the pelvis. OSSEOUS: No fractures nor significant osseous lesions. Sacroiliac joints appear un remarkable. Ther e is some facet arthropathy. There is no listhesis. No disc space narrowing in the lumbar spine IMPRESSION: 1. Compared to the prior CT scan of August 2023 there is again noted sigmoid diverticulosis but no ruslan dence of acute diverticulitis. There is no evidence acute appendicitis. 2. There is significant splenomegaly again noted. There is no lymphadenopathy. 3. There is a fat only containing umbilical hernia noted. This hernia does not contain bowel loops n or fluid. There is no evidence of bowel obstruction. RADIATION DOSE DELIVERED: 1,109.28mGy.cm Total DLP DATA REPOSITORY: All CT scans at this facility are submitted to the National Radiology Data Registry (NRDR) Dose Index Registry (DIR) with the [employer] (ACR). RADIATION OPTIMIZATION: All CT scans at this facility use at least one of these dose optimization te chniques: automated exposure control; mA and/or kV adjustment per patient size (includes targeted exa ms where dose is matched to clinical indication); or iterative reconstruction.
[2024-08-25 20:42] LABS: Abs Immature Grans 0.02 10^3/uL (0.0-0.06); Absolute Basophil Count 0.02 10^3/uL (0.0-0.2); Absolute Eosinophil Count 0.13 10^3/uL (0.0-0.7); Absolute Lymphocyte Count 1.41 10^3/uL (1.2-3.4); Absolute Monocyte Count 0.24 10^3/uL (0.1-0.8); Absolute Neutrophil Count 3.52 10^3/uL (1.2-6.7); Basophils % 0.4 %; Eosinophils % 2.4 %; HCT 40.9 % (36.0-46.0); HGB 13.3 g/dL (11.2-15.7); Immature Grans % 0.4 %; Lymphocytes % 26.4 %; MCH 28.6 pg (27.0-33.0); MCHC 32.5 % (32.0-36.0); MCV 88 fL (80-95); MPV 11.8 fL (8.0-11.0); Monocytes % 4.5 %; Neutrophils % 65.9 %; Platelet Count 107 10^3/uL (130-400); RBC 4.65 10^6/uL (3.93-5.22); RDW 14.2 % (11.7-14.6); RDW-SD 45.9 fL; WBC 5.34 10^3/uL (4.4-10.8)
[2024-08-25 20:49] LABS: Anion Gap 7.5 mmol/L (3-11); BUN 14 mg/dL (7-18); CO2 30.5 mmol/L (21.0-32.0); CREATININE 0.8 mg/dL (0.55-1.02); Calcium 9.5 mg/dL (8.5-10.1); Chloride 106 mmol/L (98-107); Estimated GFR 85.89 (mL/min/1.73m2); Glucose 97 mg/dL (74-106); Potassium 4.1 mmol/L (3.5-5.1); Sodium 144 mmol/L (136-145)
--- NOTE | 2024-08-25 22:16 | DI.[facility]_ITS ---
PROCEDURE INFORMATION: Exam: CT Abdomen And Pelvis Without Contrast Exam date and time: 08/25/2024 8:37 PM Age: 59 years old Clinical indication: Abdominal pain; R CVA tenderness TECHNIQUE: Imaging protocol: Computed tomography of the abdomen and pelvis without contrast. COMPARISON: CT RENAL COLIC WO 09/12/2023 1:31 PM FINDINGS: Liver: Normal. No mass. Gallbladder and biliary ducts: Status post cholecystectomy. Pancreas: Normal. No ductal dilation. Spleen: Mild splenomegaly. Adrenal glands: Normal. No mass. Kidneys and ureters: Normal. No hydronephrosis. Stomach and bowel: Scattered colonic diverticulosis. Appendix: No evidence of appendicitis. Intraperitoneal space: Unremarkable. No free air. No significant fluid collection. Vasculature: Unremarkable. No abdominal aortic aneurysm. Lymph nodes: Unremarkable. No enlarged lymph nodes. Urinary bladder: Unremarkable as visualized. Reproductive: Unremarkable as visualized. Bones/joints: Unremarkable. No acute fracture. Soft tissues: Small umbilical hernia. IMPRESSION: 1. Colonic diverticulosis. No CT evidence for diverticulitis. 2. Small umbilical hernia. 3. Splenomegaly. Dictated and Authenticated by: Emeka Franklin MD. Orderin Steve Mansfield MD
[2024-08-25 22:27] VITALS: BP 128/67; PULSE 67; RESP 16; TEMP 36.7; O2SAT 99
== END 2024-08-25 22:29 | disposition home or self-care (01) ==
PROVIDERS: Emergency Provider Physician Assistant; PCP Nurse Practitioner Family
DX: R30.0 Dysuria (principal); R10.9 Unspecified abdominal pain
CPT/HCPCS: 36415; 80048; 99284; 74176; 81003; 81015; 85025; 87086

== ENCOUNTER 2025-03-10 15:59 | Emergency (ER) | payer OTHER, SELFPAY ==
[2025-03-10 16:06] VITALS: BP 140/81; PULSE 98; RESP 18; TEMP 36.7; O2SAT 97
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
[2025-03-10] MEDS: Ibuprofen 600 MG TAB PO (16:54)
[2025-03-10] MEDS: Acetaminophen 500 MG TAB 1000 MG PO (16:54)
[2025-03-10] MEDS: Lidocaine 5% Patch 1 PATCH TP (16:54)
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
[2025-03-10] MEDS: MORPHine IR 15 MG TAB, 4 TABS/BTL PO (19:34)
[2025-03-10 19:42] VITALS: PULSE 83; RESP 20; O2SAT 92
== END 2025-03-10 19:43 | disposition home or self-care (01) ==
PROVIDERS: Emergency Provider Emergency Medicine; PCP Nurse Practitioner Family
DX: S30.1XXA Contusion of abdominal wall, initial encounter (principal); V49.9XXA Car occupant (driver) (passenger) injured in unspecified traffic accident, initial encounter
CPT/HCPCS: 99284; 99283; 71046; 71100